=== PATIENT | female | born 1965 | race Caucasian/White ===

== ENCOUNTER → 2016-09-08 | Outpatient (CLI) | payer OTHER ==
[~2016-09-08] MED LIST: CLARITIN 10MG T10 MG PO; FLONASE 0.05% N16 GM; IBUPROFEN800 MG PO; LEVOTHYROXINE112 MCG PO; LORTAB 5-325 M1 EACH PO; PERCOCET 7.5-31 EACH PO; PROVENTIL HFA 61 INH INH; SYMBICORT 160-1 INHA INH; VITAMIN D5000 UNIT PO
[2016-09-08 08:14] LABS: HEMOGLOBIN 13.9 gm/dl (12.3-15.3); RED BLOOD COUNT 4.29 M/UL (4.00-5.10); WHITE BLOOD COUNT 6.9 K/UL (4.5-11.0)
[2016-09-08 08:29] LABS: BUN/CREATININE RATIO 13 (0-10)
== END ==
LOC: OPSV2 07:22
PROVIDERS: Orthopaedic Surgery
DX: Z01.812 Encounter for preprocedural laboratory examination (principal); Z01.810 Encounter for preprocedural cardiovascular examination; M75.102 Unspecified rotator cuff tear or rupture of left shoulder, not specified as traumatic; J44.9 Chronic obstructive pulmonary disease, unspecified; R01.1 Cardiac murmur, unspecified
CPT/HCPCS: 36415; 80048; 85027; 93005

== ENCOUNTER → 2016-09-12 | Day surgery (SDC) | payer OTHER ==
[~2016-09-12] VITALS: Ht 157.5 cm; Wt 66.7 kg
== END | disposition home or self-care (01) ==
LOC: OR 07:50
PROVIDERS: Orthopaedic Surgery
PROC: 0RBK4ZZ Excision of Left Shoulder Joint, Percutaneous Endoscopic Approach (ICD-10-PCS; 2016-09-12)
PROC: 0LB24ZZ Excision of Left Shoulder Tendon, Percutaneous Endoscopic Approach (ICD-10-PCS; principal; 2016-09-12 08:15)
PROC: 0RNK4ZZ Release Left Shoulder Joint, Percutaneous Endoscopic Approach (ICD-10-PCS; 2016-09-12 08:15)
DX: M75.122 Complete rotator cuff tear or rupture of left shoulder, not specified as traumatic (principal); M24.812 Other specific joint derangements of left shoulder, not elsewhere classified; M41.9 Scoliosis, unspecified; G62.9 Polyneuropathy, unspecified; J44.9 Chronic obstructive pulmonary disease, unspecified; E03.9 Hypothyroidism, unspecified; R01.1 Cardiac murmur, unspecified; E78.5 Hyperlipidemia, unspecified; M19.90 Unspecified osteoarthritis, unspecified site; F17.210 Nicotine dependence, cigarettes, uncomplicated; Z90.710 Acquired absence of both cervix and uterus; Z90.49 Acquired absence of other specified parts of digestive tract; Z98.51 Tubal ligation status; Z79.51 Long term (current) use of inhaled steroids; Z79.891 Long term (current) use of opiate analgesic; Z79.899 Other long term (current) drug therapy; Z82.49 Family history of ischemic heart disease and other diseases of the circulatory system; Z83.3 Family history of diabetes mellitus
CPT/HCPCS: J0171; J0690; J1100; J1200; J2250; J2405; J2710; J2795; J3010; J7120

== ENCOUNTER → 2020-07-02 | Outpatient (CLI) | payer OTHER ==
[~2020-07-02] MED LIST changes: +HYDROCHLOROTHIA25 MG PO; +LIPITOR TAB 1010 MG PO; +NORCO 10-325 T1 EACH PO; +NORCO 5-325 TA1 EACH PO; +SPIRIVA RESPIMAT4 GM INH
== END ==
LOC: RAD 09:00 → MRI 09:50
PROC: BQ31YZZ Magnetic Resonance Imaging (MRI) of Left Hip using Other Contrast (ICD-10-PCS; principal; 2020-07-02)
DX: S73.192A Other sprain of left hip, initial encounter (principal); X58.XXXA Exposure to other specified factors, initial encounter
CPT/HCPCS: 73722; A9577; Q9962

== ENCOUNTER → 2020-08-15 | Outpatient (CLI) | payer OTHER | LOC: RAD 08:00 | PROC: 3E0U3BZ Introduction of Anesthetic Agent into Joints, Percutaneous Approach (ICD-10-PCS; principal; 2020-08-15) | PROC: 3E0U33Z Introduction of Anti-inflammatory into Joints, Percutaneous Approach (ICD-10-PCS; 2020-08-15) | PROC: BQ111ZZ Fluoroscopy of Left Hip using Low Osmolar Contrast (ICD-10-PCS; 2020-08-15) | DX: M16.12 Unilateral primary osteoarthritis, left hip (principal) | CPT/HCPCS: J3301; Q9962 ==